=== PATIENT | male | born 1960 | race Caucasian/White ===

== ENCOUNTER 2017-02-04 19:47 | Observation (INO) | payer MEDICARE ==
[2017-02-04] MEDS ORDERED: HOME MEDICATION LIST NEEDED 1 EA EACH MISC ONE (20:40)
--- NOTE | 2017-02-04 21:28 | ER NURSING DOCUMENTATION ---
Nurse's Notes [facility] Name:Mainor Murray Age:56 yrs Sex:Male :1960 Arrival Date:02/04/2017 Time:19:47 BedTrauma-C Private MD:Jessenia Alexander Diagnosis:CHF (Congestive Heart Failure);Pneumonia, Unspecified Presentation: 02/04 19:49 Acuity: HALLE 2 rh 20:13 Presenting complaint: Patient states: Decreased sats at home - 80%. Doesn't normally sj wear O2. Mechanical fall today to left side of head and increasingly disoriented. Scab to left lower ear lobe. AO x 3 now. Transition of care: Home. Notified ED Physician of patient's arrival and CC Srinivasa Bond notified. 20:13 Method Of Arrival: Private Vehicle Triage Assessment: 20:15 General: Appears uncomfortable, Behavior is cooperative, pleasant. Pain: Complains of sj pain in back, shoulders, legs - chronic Pain currently is 7 out of 10 on a pain scale. Neuro: Level of Consciousness is awake, alert, Oriented to person, place, time, event. Cardiovascular: Capillary refill < 3 seconds Heart tones S1 S2 Murmur present. Respiratory: Airway is patent Respiratory effort is even, unlabored, Respiratory pattern is regular, Reports shortness of breath Onset: The symptoms/episode began/occurred gradually, the patient has moderate shortness of breath. Historical: - Allergies: Amoxicillin; Nubain; Keflex; Sulfa (Sulfonamide Antibiotics); Fentanyl; - Home Meds: 1. Synthroid 50 mcg oral tab 1 tab once daily 2. pregabalin 75 mg oral cap 1 cap 2 times per day 3. prednisone 1 mg oral tab once daily 4. Lasix 80 mg oral tab 1 tab 2 times per day 5. Klor-Con 10 10 mEq oral TbER 2 tabs once daily 6. OXYGEN 1 LITER AT NIGHT 7. metoprolol tartrate 100 mg oral tab 1 tab 2 times per day 8. Prilosec 20 mg oral cpDR 1 cap once daily 9. venlafaxine 75 mg oral cp24 1 cap once daily with food - PMHx: PNEUMONIA; CHF; COPD; HYPERTENSION; PACEMAKER; RHEUMATOID ARTHRITIS; CHF; GERD; hypertrophic cardiomyopathy; HEART MURMUR; ANEMIA; HYPOXIA; OPIOD DEPENDENT; SLEEP APNEA; EDEMA; COPD (September 22, 2016); Sepsis (September 22, 2016); - PSHx: HIP SURGERY; SHOULDER SURGERY; pacer and defibrillator; Bilat hip replacement; Shoulder replacement; - Tetanus: < 10 years. - Ebola Screening: : Patient negative for fever greater than or equal to 101.5 degrees Fahrenheit, and additional compatible Ebola Virus Disease symptoms. - Immunization history: Pneumococcal vaccine is up to date, Flu Vaccine < 1 year. - Social history: Smoking status: Patient states former smoker of tobacco. Smoking status: Patient uses tobacco products, current every day smoker. Patient/guardian denies using alcohol, marijuana. Screenin:08 Infectious Disease Risk None. Abuse screen: Denies threats or abuse. Denies injuries sj from another. Nutritional screening: No deficits noted. Assessment: 21:08 Cardiovascular: Rhythm is sinus rhythm Chest pain is located in substernal area. sj Respiratory: Respiratory effort is even, unlabored, Breath sounds are clear bilaterally. Vital Signs: 19:57 BP 127 / 64; Pulse 67; Resp 20; Temp 98.3(O); Pulse Ox 81% on R/A; Weight 68.49 kg; sj Height 5 ft. 7 in. (170.18 cm); Pain 7/10; 20:19 BP 141 / 69; Pulse 65; Resp 19; Pulse Ox 94% on 2 lpm NC; sj 20:19 BP 119 / 63; Pulse 64; Resp 15; Pulse Ox 95% on 2 lpm NC; sj 19:57 Body Mass Index 23.65 (68.49 kg, 170.18 cm) ED Course: 19:49 Patient arrived in ED. em2 19:49 Jessenia Alexander is Private Physician. em2 19:49 Stephanie Stephens is Primary Nurse. rh 19:49 Triage completed. rh 19:50 Melo Bernabe MD is Attending Physician. 19:51 EKG done. (by ED staff). Reviewed by Melo Bernabe MD. rh 20:01 EKG attached rh 20:13 Sahara Haro is Primary Nurse. sj 20:15 Patient moved to radiology. [place] 20:18 CXR 2V [id number] In Process Unspecified. EDMS 20:19 Patient moved back from radiology. [place] 20:27 CXR 2V [id number] Sent. [place] 20:32 Cortney Braden MD is Admitting Physician. alyssa 21: Valuables Given to family. Patient has correct armband on for positive identification. sj Placed in gown. Bed in low position. Call light in reach. Side rails up X2. 21:09 First set of blood cultures drawn Second set of blood cultures drawn by me by Lab staff sj EKG done. Inserted peripheral IV: 20 gauge in right forearm and blood collected. Missed attempts: Bleeding controlled, band aid applied, catheter tip intact. Administered Medications: 20:35 Drug: Lasix 80 mg; Route: IVP; Site: right forearm; 20:59 Drug: Dilaudid 1 mg; Route: IVP; Site: right forearm; 21:26 Follow up: Response: Pain is unchanged, physician notified 21:07 Drug: Rocephin 1 grams; Route: IVPB; Site: right forearm; 21:26 Follow up: IV Status: Infusion continued upon admission Point of Care Testing: Urine Dip: 20:39 pH: 5.5; ; Specific [place]: 1.020; Ketones: Negative; Glucose: Negative; Protein: mv Negative; Leukocytes: Negative; Nitrite: Negative ; Blood: Negative; Bilirubin: Negative ; Urobilinogen: Normal Output: 20:30 Urine: 550ml (Voided); Total: 550ml. Outcome: 20:33 Decision to Admit by Provider. alyssa 21: Patient left the ED. Signatures: Dispatcher [employer] EDMelo Altamirano MD MD jm Abbott, Radha Mead Rachel rh vogel, margaux mv Janzen, Sarah sj
--- NOTE | 2017-02-04 21:28 | ER PHYSICIAN DOCUMENTATION ---
Physician Documentation [facility] Name:Mainor Murray Age:56 yrs Sex:Male :1960 Arrival Date:02/04/2017 Time:19:47 BedTrauma-C Private MD:Jessenia Alexander ED, John Disposition: 02/04/17 20:33 Admit ordered for Cortney Braden. Preliminary diagnosis are CHF (Congestive Heart Failure), Pneumonia, Unspecified. - Bed requested for Medical/Surgical. - Condition is Fair. - Problem is new. - Symptoms are unchanged. 23 HR OBS Yes HPI: 02/04 20:03 This 56 yrs old Male presents to ER with complaints of Breathing Difficulty. jm 20:03 The patient has shortness of breath at rest, with light activity. Onset: The jm symptom(s)/episode began/occurred 2 day(s) ago. Duration: The symptoms are continuous. The patient's shortness of breath is aggravated by nothing. Associated signs and symptoms: Pertinent positives: edema, weakness, SOB, Pertinent negatives: chest pain, non-productive cough, productive cough, fever. Severity of symptoms: in the emergency department the symptoms are unchanged. Risk Factors. The patient has experienced similar episodes in the past, and the symptoms today are exactly the same, to when the patient was apparently diagnosed with CHF exacerbation . The patient has been recently seen by a physician: the patient's primary care provider, with similar presenting complaints, told to come to the ER for eval of his dyspnea. . Historical: - Allergies: Amoxicillin; Nubain; Keflex; Sulfa (Sulfonamide Antibiotics); Fentanyl; - Home Meds: 1. Synthroid 50 mcg oral tab 1 tab once daily 2. pregabalin 75 mg oral cap 1 cap 2 times per day 3. prednisone 1 mg oral tab once daily 4. Lasix 80 mg oral tab 1 tab 2 times per day 5. Klor-Con 10 10 mEq oral TbER 2 tabs once daily 6. OXYGEN 1 LITER AT NIGHT 7. metoprolol tartrate 100 mg oral tab 1 tab 2 times per day 8. Prilosec 20 mg oral cpDR 1 cap once daily 9. venlafaxine 75 mg oral cp24 1 cap once daily with food - PMHx: PNEUMONIA; CHF; COPD; HYPERTENSION; PACEMAKER; RHEUMATOID ARTHRITIS; CHF; GERD; hypertrophic cardiomyopathy; HEART MURMUR; ANEMIA; HYPOXIA; OPIOD DEPENDENT; SLEEP APNEA; EDEMA; COPD (September 22, 2016); Sepsis (September 22, 2016); - PSHx: HIP SURGERY; SHOULDER SURGERY; pacer and defibrillator; Bilat hip replacement; Shoulder replacement; - Tetanus: < 10 years. - Ebola Screening: : Patient negative for fever greater than or equal to 101.5 degrees Fahrenheit, and additional compatible Ebola Virus Disease symptoms. - Immunization history: Pneumococcal vaccine is up to date, Flu Vaccine < 1 year. - Social history: Smoking status: Patient states former smoker of tobacco. Smoking status: Patient uses tobacco products, current every day smoker. Patient/guardian denies using alcohol, marijuana. ROS: 20:08 Constitutional: Positive for fatigue, Negative for chills, fever. jm 20:08 ENT: Negative for rhinorrhea, sinus congestion, sinus pain, sore throat. 20:08 Cardiovascular: Positive for edema, paroxysmal nocturnal dyspnea, Negative for chest pain, palpitations. 20:08 Respiratory: Positive for dyspnea on exertion, shortness of breath, Negative for cough. 20:08 Abdomen/GI: Negative for abdominal pain, nausea, vomiting. 20:08 : Negative for urinary symptoms, hematuria. 20:08 MS/extremity: Positive for swelling. 20:08 Skin: Negative for cellulitis. 20:08 Neuro: Positive for dizziness, weakness, Negative for loss of consciousness, numbness. 20:08 Psych: Negative for drug dependence, alcohol dependence. Exam: 20:09 Constitutional: The patient appears alert, awake, comfortable. 20:09 Eyes: Periorbital structures: appear normal, Extraocular movements: no acute changes. 20:09 ENT: Mouth: is normal, Voice: is normal. 20:09 Neck: Thyroid: appears normal, Trachea: is midline with no obvious abnormalities. 20:09 Cardiovascular: Rate: normal, Rhythm: regular, Edema: 3+ edema to level of left midcalf and right midcalf. 20:09 Respiratory: the patient does not display signs of respiratory distress, Respirations: normal, Breath sounds: rales, that are mild, are located in both bases. 20:09 Abdomen/GI: Bowel sounds: normal, Palpation: abdomen is soft and non-tender. 20:09 Musculoskeletal/extremity: Extremities: grossly normal except: noted in the right leg and left leg: swelling, There is no evidence of cellulitis , ROM: intact in all extremities. 20:09 Skin: Appearance: Color: pink, cellulitis, is not appreciated. 20:09 Neuro: Mentation: is normal, Memory: is normal. 20:09 Psych: Behavior/mood is pleasant, cooperative, Affect is calm. Vital Signs: 19:57 BP 127 / 64; Pulse 67; Resp 20; Temp 98.3(O); Pulse Ox 81% on R/A; Weight 68.49 kg; sj Height 5 ft. 7 in. (170.18 cm); Pain 7/10; 20:19 BP 141 / 69; Pulse 65; Resp 19; Pulse Ox 94% on 2 lpm NC; sj 20:19 BP 119 / 63; Pulse 64; Resp 15; Pulse Ox 95% on 2 lpm NC; sj 19:57 Body Mass Index 23.65 (68.49 kg, 170.18 cm) MDM: 19:50 Patient medically screened. 20:01 EKG attached 20:13 Differential diagnosis: CHF exacerbation, pneumonia. Data reviewed: vital signs, nurses notes, and as a result, I will. 20:27 Test interpretation: by ED physician or midlevel provider: plain radiologic studies, jm ECG. Counseling: I had a detailed discussion with the patient and/or guardian regarding: the historical points, exam findings, and any diagnostic results supporting the discharge/admit diagnosis, lab results, radiology results, the need for further work-up and treatment in the hospital. ECG:. Physician consultation: Cortney Braden MD was called at 20:30, was contacted at 20:30, regarding admission, and will see patient tomorrow. Admission orders: after a detailed discussion of the patient's condition and case, the admit orders are written by me. ED course: Pt here for dyspnea. Pt found to have a bilateral PNA on CXR. Pt also w elevated BNP, so he also has a CHF exacerbation. Pt will be admitted by Dr. Braden. Pt given 80mg of IV lasix, azithro, and rocephin. . 02/04 21:03 Order name: TROPONIN I; Complete Time: 23:32 EDMS 02/04 21:46 Order name: C-REACTIVE PROTEIN; Complete Time: 23:32 EDMS 02/04 22:48 Order name: UA W/ MICRO -CULTURE IF IND; Complete Time: 23:32 [facility] [place] 02/05 02:57 Order name: TROPONIN I [facility] [place] 02/05 06:12 Order name: CBC AUTO DIF, MDIF/RMOR IF IND [facility] [place] 02/05 06:52 Order name: BASIC METABOLIC PANEL [facility] [place] 02/05 07:15 Order name: BNP,NT-PRO [facility] [place] 02/05 08:52 Order name: TROPONIN I [facility] [place] 02/05 20:37 Order name: BLOOD CULTURE [facility] [place] 02/05 20:37 Order name: BLOOD CULTURE [facility] [place] 02/06 01:39 Order name: TROPONIN I [facility] [place] 02/06 06:37 Order name: COMPREHENSIVE METABOLIC PANEL [facility] [place] 02/06 06:37 Order name: BNP,NT-PRO [facility] [place] 02/06 06:38 Order name: CBC AUTO DIF, MDIF/RMOR IF IND [facility] [place] 02/04 20:18 Order name: CXR 2V [id number] [facility] [place] 02/05 07:43 Order name: CXR 2V [id number] [facility] [place] 02/04 19:51 Order name: 12-lead EKG; Complete Time: 20:02 02/04 19:51 Order name: Continuous Cardiac Monitoring; Complete Time: 20:02 02/04 19:51 Order name: Pulse Ox Continuous; Complete Time: 20:02 02/04 19:51 Order name: Iv Saline Lock; Complete Time: 20:02 02/04 19:51 Order name: Oxygen; Complete Time: 20:02 EC:27 Rhythm is regular with Right bundle branch block. QRS interval is normal. QT interval jm is normal. No Q waves. T waves are Normal. No ST changes noted. No change from previous ECG in August,. Dispensed Medications: 20:35 Drug: Lasix 80 mg; Route: IVP; Site: right forearm; 20:59 Drug: Dilaudid 1 mg; Route: IVP; Site: right forearm; 21:26 Follow up: Response: Pain is unchanged, physician notified sj 21:07 Drug: Rocephin 1 grams; Route: IVPB; Site: right forearm; sj 21:26 Follow up: IV Status: Infusion continued upon admission Point of Care Testing: Urine Dip: 20:39 pH: 5.5; ; Specific [place]: 1.020; Ketones: Negative; Glucose: Negative; Protein: mv Negative; Leukocytes: Negative; Nitrite: Negative ; Blood: Negative; Bilirubin: Negative ; Urobilinogen: Normal Signatures: Melo Bernabe MD MD jm Hofsess, Rachel rh Janzen, Sarah sj
[2017-02-04] MEDS: GUAIFENESIN ER 600 MG TABLET PO SCH (21:44)
[2017-02-04] MEDS ORDERED: AZITHROMYCIN 500 MG in NORMAL SALINE 250 ML IV SCH (22:00)
[2017-02-04] MEDS: HYDROmorphone HCL 1 MG/ML SYR IV PRN (22:35)
[2017-02-04 22:44] LABS: URINE MUCUS NONE SEEN (Up to 25%); URINE RBC NONE SEEN (0-5/hpf); URINE SQUAMOUS EPITHELIAL CELL NONE SEEN (<= 15/hpf); URINE WBC NONE SEEN (0-4/hpf)
[2017-02-04 22:46] LABS: URINE COLOR PALE YELLOW
[2017-02-04 22:47] LABS: URINE APPEARANCE CLEAR; URINE BACTERIA NONE SEEN (<10/hpf); URINE BILIRUBIN NEGATIVE (NEGATIVE); URINE BLOOD NEGATIVE (NEGATIVE); URINE GLUCOSE NORMAL (NEGATIVE); URINE KETONE NEGATIVE (NEGATIVE); URINE LEUKOCYTE ESTERASE NEGATIVE (NEGATIVE); URINE NITRITE NEGATIVE (NEGATIVE); URINE PH 6.5 (5-7); URINE PROTEIN NEGATIVE (NEG - TRACE); URINE SPECIFIC GRAVITY 1.015 (0.001-1.035); URINE UROBILINOGEN 0.2mg/dL (Normal) (NEG-1mg/dL)
[2017-02-05] MEDS: HYDROmorphone HCL 1 MG/ML SYR IV PRN ×2 (05:49→11:15)
[2017-02-05 06:09] LABS: BASOPHIL# 0.1 X 10^3uL (0.0-0.1); BASOPHILS 0.8 % (0.0-2.0); EOSINOPHILS 1.1 % (0.0-6.0); EOSINOPHILS# 0.1 X 10^3uL (0.0-0.4); HEMATOCRIT 34.8 % (42.0-54.0); HEMOGLOBIN 11.6 g/dL (14.0-18.0); LYMPHOCYTES# 2.2 X 10^3uL (0.8-3.8); MEAN CELL VOLUME 73.9 fL (80.0-100.0); MEAN CORPUS. HGB CONCENTRATION 33.3 g/dL (32.0-36.0); MEAN CORPUSCULAR HEMOGLOBIN 24.6 pg (29.0-35.0); MEAN PLATELET VOLUME 8.4 fL (7.4-10.4); MONOCYTES 7.8 % (2.0-10.0); MONOCYTES# 0.8 X 10^3uL (0.2-1.0); NEUTROPHILS 69.3 % (54.0-75.0); NEUTROPHILS# 7.4 X 10^3uL (2.6-6.7); PLATELET COUNT 296 X 10^3uL (130-440); RED BLOOD COUNT 4.72 X 10^6uL (4.20-6.10); WHITE BLOOD COUNT 10.6 X 10^3uL (3.9-10.7)
[2017-02-05 06:11] LABS: RED CELL DISTRIBUTION WIDTH 18.6 % (11.5-14.5)
[2017-02-05 06:38] LABS: BLOOD UREA NITROGEN 12 mg/dL (9-20); CALCIUM 9.1 mg/dL (8.4-10.2); CHLORIDE 101 mmol/L (98-107); CREATININE 1.2 mg/dL (0.7-1.3); EST GLOMERULAR FILTRATION RATE > 60 mL/min; GLUCOSE 110 mg/dL (70-100); POTASSIUM 2.7 mmol/L (3.5-5.1); SODIUM 142 mmol/L (137-145)
--- NOTE | 2017-02-05 07:01 | RADIOLOGY REPORT ---
Two views of the chest are compared with prior films dated 10/02/2016 The heart and vessels and lungs are stable. Left sided pacemaker appears unchanged. There has been development of bilateral lower lung field infiltrates. No fluid or pneumothorax is seen. IMPRESSION: Development of bilateral lower lung field infiltrates. MTDD
[2017-02-05] MEDS: GUAIFENESIN ER 600 MG TABLET PO SCH ×2 (08:40→20:34)
[2017-02-05] MEDS ORDERED: POTASSIUM CHLORIDE ER 20 MEQ TABLET PO SCH (10:00)
--- NOTE | 2017-02-05 13:41 | HISTORY & PHYSICAL ---
PRIMARY CARE PROVIDER: Peyton Nelson. CARDIOLOGY: Dr. Reece Lopez. GENERAL SURGEON: Dr. Lamont Isaacs. CHIEF COMPLAINT: Shortness of breath. HISTORY OF PRESENT ILLNESS: This is a 56-year-old white male with a history of obstructive hypertrophic cardiomyopathy, hypertension, rheumatoid arthritis and chronic pain syndrome, who presented to [facility] with a 2-day history of increasing shortness of breath and edema. He has had a mild nonproductive cough. However, he has not had any fevers, chills, or sweats. He has had some midsternal chest pain without radiation described as chest tightness. No lightheadedness or dizziness. No palpitations. No nausea, vomiting or diaphoresis. He has not had any known sick contacts, no sore throat, no ear pain. He has had a mild runny nose. He was seen in the wound care clinic yesterday and was sent to the Emergency Room from the [facility] for workup of his fluid overload. In the emergency room he was found to have bilateral lower lobe infiltrates and was admitted. REVIEW OF SYSTEMS: He had a fall yesterday tripping and landing on the right side of his head. No loss of consciousness. He landed on outstretched hands. He has some soreness but no significant pain or injuries. He uses nocturnal oxygen 2 liters at night. His swelling and shortness of breath is better from admission. No headaches. No history of stroke and no signs or symptoms of stroke specifically no dysphagia, no dysphasia, no upper or lower extremity weakness above his baseline. No dysuria. No abdominal pain. He has wounds of his bilateral feet which are being followed by wound care, Dr. Isaacs and Tessy Sales RN. No recent travel. No rash. No history of DVT. Weight loss 20 pounds over the last several months. PAST MEDICAL HISTORY 1. Obstructive hypertrophic cardiomyopathy. 2. Chronic diastolic congestive heart failure. 3. Renal vascular hypertension. He is status post remote stenting of both renal arteries. 4. Status post AICD and pacemaker implantation. EKG with right bundle branch block morphology. 5. History of respiratory failure secondary to interstitial lung disease. 6. Hypothyroidism. 7. Gastroesophageal reflux disease. 8. Nocturnal hypoxemia. He wears 2 liters at night. 9. Rheumatoid arthritis, seronegative, multiple sites. 10. Chronic pain syndrome. 11. Idiopathic peripheral neuropathy. 12. History of adrenal insufficiency due to corticosteroid withdrawal. 13. Sciatica, left side. 14. Depression. 15. Bilateral lower extremity wounds. PAST SURGICAL HISTORY 1. Status post remote stenting of both renal arteries. 2. Renal angiogram performed October 2015 demonstrated widely patent renal arteries. 3. Status post AICD and pacemaker implantation. 4. Status post bilateral total hip replacements. 5. Status post bilateral shoulder replacements. MEDICATIONS: Obtained from chart notes Baby aspirin 81 mg daily. Diltiazem 120 mg daily. Oxygen 2 liters by nasal cannula at night. Lasix 1 tablet twice daily. Krill oil daily. Lyrica 75 mg twice daily. Metoprolol 100 mg twice daily. Oxycodone 40 mg twice daily. Oxycodone 60 mg twice daily. Oxycodone 30 mg 4 times daily. Potassium chloride 10 mEq 2 tablets daily. Spironolactone 25 mg daily. Synthroid 50 mcg daily. Valtrex 1 g 2 times daily for 7 days as needed for outbreak. Effexor 75 mg daily. Prednisone 1 mg daily. SOCIAL HISTORY: He is . He lives at home with his and 2 sons. He is on Social Security income and Disability secondary to multiple medical problems. He continues to smoke 5-6 cigarettes per day. No alcohol or drug use. FAMILY HISTORY: His mom of 78 has rheumatoid arthritis. Dad is 81, has a history of metastatic renal cell carcinoma. He is currently stable. Two brothers that are healthy. ALLERGIES: Nubain, Keflex, sulfa and penicillin causing anaphylaxis. DATA: Chest x-ray: Bilateral lower lobe infiltrates. Admission laboratories: C reactive protein is greater than 90. Urinalysis negative. Troponin times 2 negative. CBC this morning: White count 10.6, hemoglobin 11.6, hematocrit 34.8 , platelets 296 with 89% neutrophils, 3% bands. D-dimer 258. Potassium this morning 2.7. Alkaline phosphatase 157. BNP this morning 7020. EKG: Normal sinus rhythm with right bundle branch block, QRS interval normal, QT interval normal. No Q waves. No acute ST-T wave changes. No change from prior EKG in August 2016. EMERGENCY DEPARTMENT COURSE: Lasix 80 mg IV times 1, Dilaudid 1 mg IV, Rocephin 1 g IV. PHYSICAL EXAMINATION VITAL SIGNS: Initial vital signs in the emergency room: Temperature 98.3, pulse 67, respiratory rate 20, blood pressure 127/64, pulse oximetry 81% on room air, weight 68.49 kg. GENERAL: This is a chronically ill appearing male who is lying in bed in no apparent distress. He is awake, alert and oriented times 3. HEENT: His sclerae are clear. Pupils are equal, round and reactive to light. Extraocular movements are intact. His TMs are clear. His oropharynx is clear. Mucous membranes are moist and intact. Small abrasion left pinna secondary to fall yesterday. NECK: His neck is supple. No carotid bruits. No jugular venous distention. No lymphadenopathy. LUNGS: Fairly good aeration throughout and clear. HEART: Regular rate and rhythm with a grade 2/6 systolic murmur at the left lower sternal border. ABDOMEN: Soft, nontender, nondistended with good bowel sounds. No masses or hepatosplenomegaly. BACK: Significant scoliosis. EXTREMITIES: Bilateral lower extremities have dressings in place which were not removed. He appears to have at least trace to 1+ edema. Unable to palpate dorsalis pedis and posterior tibial pulses. Negative Homans. NEUROLOGIC: He is alert and oriented x3. Cranial nerves 2-12 are grossly intact without focal deficits. His motor, sensation and DTRs are intact. SKIN: He has well healed surgical scars of his bilateral shoulders and bilateral hips. IMPRESSION: This is a 56-year-old white male with multiple medical problems who presents with bilateral pneumonia, hypoxemia, congestive heart failure exacerbation. PLAN 1. Fluids, electrolytes and nutrition. He was given Lasix in the emergency room. Will replete potassium and follow electrolytes closely. His BNP has decreased from admission. Regular diet. 2. Cardiovascular. Cardiology consultation this morning. Repeat EKG this morning. He has 2 sets of troponins which have been negative. Continue his current medications. Await recommendations from Cardiology. 3. Respiratory. The patient with nocturnal hypoxemia requiring oxygen here in the hospital. His lungs sound fairly stable. He has bilateral lower lobe infiltrates. Will continue Rocephin and azithromycin. He is not having any bronchospasm. No need for steroids or nebulizers at this time. Respiratory therapy consultation. 4. GI. The patient with history of gastroesophageal reflux disease. Continue PPI. Has mildly elevated alkaline phosphatase. Otherwise stable. 5. Renal. The patient with history of renal vascular hypertension. He is status post remote stenting. His renal function is currently stable. 6. Disposition. He is admitted to observation. Anticipate 2-3 day hospital stay if he continues to do well. Copy to Peyton Nelson. [facility]
[2017-02-05] MEDS ORDERED: IBUPROFEN 200 MG TABLET PO PRN (13:47)
[2017-02-05] MEDS ORDERED: NON-FORMULARY MEDICATION (Omeprazole [Prilosec] 20 MG) PO SCH (14:00)
[2017-02-05] MEDS ORDERED: predniSONE 1 MG TABLET PO SCH (14:00)
[2017-02-05] MEDS ORDERED: oxyCODONE HCL CR 10 MG TAB.SR.12H PO SCH (14:00)
--- NOTE | 2017-02-05 14:02 | HISTORY & PHYSICAL ---
DATE OF CONSULTATION: 02/05/17 IDENTIFYING DATA: A 56-year-old male. REASON FOR CONSULTATION: Heart failure. HISTORY OF PRESENT ILLNESS: A very pleasant gentleman with a known history of hypertrophy obstructive cardiomyopathy. The patient is also noted to have a prior history of noncompliance and had been somewhat difficult to control with beta blockers and calcium channel blockers. As of late it appears that he had been complaint to his medical therapy. In addition, he underwent a pacemaker/ defibrillator secondary to high risk features with a DL of greater than 30 mm. He has received no therapies. As of late the patient has been struggling with lower extremity edema and wounds. He has been followed closely by infectious disease. The patient was admitted last night with progressive dyspnea. He himself denies any fevers or chills but he is being treated with immunosuppressants for rheumatoid arthritis. Chest x-ray revealed bilateral infiltrates and proBNP was quite high. He did receive a dose of Lasix and is feeling a little bit better. Again , he denies any fevers, chills and/or productive cough. PAST MEDICAL HISTORY, ILLNESSES AND SURGERIES 1. History of respiratory failure with interstitial pneumonitis. 2. Acute on chronic diastolic heart failure secondary to hypertrophic cardiomyopathy. 3. Prior history of leukocytosis due to steroids. 4. History of COPD. 5. History of rheumatoid arthritis. 6. History of tobacco use. MEDICATIONS: Please refer to the medication reconciliation list. ALLERGIES: Please refer to the medication reconciliation list. SOCIAL HISTORY: Again he has a prior history of tobacco use. FAMILY HISTORY: Negative for premature cardiovascular disease. REVIEW OF SYSTEMS: The remaining comprehensive review of systems is negative. PHYSICAL EXAMINATION GENERAL: Well-nourished, well-developed, no acute distress. VITAL SIGNS: Blood pressure 123/67 with a pulse of 69 and regular, respirations 16 and he is satting 96% on 2 liters, afebrile. HEENT: Normocephalic/atraumatic. Ears, eyes, nose and throat are unremarkable. No masses or lesions. NECK: I am unable to appreciate any significant JVD sitting upright. Carotid upstrokes are brisk without bruits. CARDIOVASCULAR: PMI is slightly displaced. He is noted to have a 3/6 systolic and holosystolic murmur consistent with hypertrophic cardiomyopathy that was previously diagnosed. RESPIRATORY: Slight wheezing with slight crackles noted at bases. ABDOMEN: Bowel sounds present, nontender, nondistended, no hepatosplenomegaly. EXTREMITIES: Dressed. Edema noted with wounds. NEUROLOGIC: No gross motor or sensory deficits. PSYCHIATRIC: Alert and oriented times 3. EKG: Demonstrates sinus rhythm with a right bundle branch block and left anterior fascicular block. High voltage noted. LABORATORY DATA: White blood cell count 10.6, hemoglobin 11.6, platelet count 296. Sodium 142, potassium 2.7, BUN and creatinine are 12 and 1.2 respectively. Initial proBNP was very high and has come down to 7020 after a dose of IV Lasix. Troponins are negative. CRP is greater than 90. Blood cultures pending. Chest x-ray reveals bilateral lower lobe infiltrates. ASSESSMENT 1. Renal vascular hypertension. Remote stent in both renal arteries. Last renal angiogram performed in October 2015 demonstrated widely patent renal arteries. 2. Hypertrophic obstructive cardiomyopathy associated with outflow tract obstruction and mitral regurgitation . Variable outflow tract obstruction related to noncompliance to medications. 3. Status post AICD and pacemaker implantation secondary to high risk features above. 4. Rheumatoid arthritis, chronic immunosuppressive use. 5. Ongoing tobacco use. 6. EKG demonstrating chronic right bundle branch and left anterior fascicular block with high voltage. 7. Prior history of respiratory failure secondary to interstitial lung disease. 8. Chronic lower extremity edema with wounds. 9. Admission with respiratory failure, acute on chronic. PLAN: I suspect that the respiratory is multifactorial. The patient clearly has a fair amount of lung pathology on top of acute on chronic diastolic heart failure. It did respond nicely to IV Lasix. I would recommend aggressive diuresis and run him on the dry side with his other comorbidities including lower extremity edema and interstitial lung disease. Will go ahead and obtain an echocardiogram to assess overall central venous pressures and filling pressures along with LV outflow tract obstruction and DL. In addition, we will review his medications and hopefully he has been compliant to beta blockers and calcium channel blockers. It has been a pleasure to participate in the care of this patient. Please do not hesitate to call for further questions. Copy to Cortney Braden MD [facility]
[2017-02-05] MEDS: ZINC GLUCONATE 50 MG TABLET PO SCH (14:50)
[2017-02-05] MEDS: OXYCODONE HCL 40 MG PO SCH ×2 (14:50→20:34)
[2017-02-05] MEDS: predniSONE 10 MG TABLET PO SCH (14:50)
[2017-02-05] MEDS: AZITHROMYCIN 250 MG TABLET PO SCH (14:51)
[2017-02-05] MEDS: LEVOTHYROXINE 50 MCG TABLET PO SCH (14:51)
[2017-02-05] MEDS: PREGABALIN 75 MG CAPSULE PO SCH ×2 (14:52→20:33)
[2017-02-05] MEDS: VENLAFAXINE ER 75 MG CAPSULE PO SCH (14:52)
[2017-02-05] MEDS: MAGNESIUM OXIDE 400 MG TABLET PO SCH (14:52)
[2017-02-05] MEDS: cefTRIAXone SODIUM 1,000 MG in NORMAL SALINE MINI-BAG+ 100 ML IV SCH (20:31)
[2017-02-05] MEDS: FUROSEMIDE 40 MG TABLET PO SCH (20:34)
[2017-02-05] MEDS: OXYCODONE HCL 20 MG PO SCH (20:37)
[2017-02-05] MEDS ORDERED: FUROSEMIDE 20 MG TABLET PO SCH (21:00)
[2017-02-05] MEDS: oxyCODONE HCL IR 20 MG TABLET PO PRN (21:50)
[2017-02-06] MEDS: PANTOPRAZOLE 40 MG TABLET PO SCH (06:15)
[2017-02-06] MEDS: IBUPROFEN 600 MG TABLET PO PRN (06:15)
[2017-02-06 06:18] LABS: BASOPHIL# 0.2 X 10^3uL (0.0-0.1); BASOPHILS 1.1 % (0.0-2.0); EOSINOPHILS 0.1 % (0.0-6.0); HEMATOCRIT 36.9 % (42.0-54.0); LYMPHOCYTES 11.5 % (20.0-40.0); LYMPHOCYTES# 2.2 X 10^3uL (0.8-3.8); MEAN CELL VOLUME 74.7 fL (80.0-100.0); MEAN CORPUS. HGB CONCENTRATION 33.3 g/dL (32.0-36.0); MEAN CORPUSCULAR HEMOGLOBIN 24.9 pg (29.0-35.0); MEAN PLATELET VOLUME 8.3 fL (7.4-10.4); MONOCYTES 7.1 % (2.0-10.0); MONOCYTES# 1.3 X 10^3uL (0.2-1.0); NEUTROPHILS 80.2 % (54.0-75.0); PLATELET COUNT 307 X 10^3uL (130-440); RED CELL DISTRIBUTION WIDTH 18.4 % (11.5-14.5)
[2017-02-06 06:26] LABS: A/G RATIO 1.1; ALBUMIN 3.9 g/dL (3.5-5.0); ALKALINE PHOSPHATASE 277 U/L (38-126); ALT 43 U/L (21-72); AST 48 U/L (17-59); BILIRUBIN, TOTAL 0.5 mg/dL (0.2-1.3); BLOOD UREA NITROGEN 12 mg/dL (9-20); CALCIUM 9.1 mg/dL (8.4-10.2); CHLORIDE 103 mmol/L (98-107); EST GLOMERULAR FILTRATION RATE > 60 mL/min; GLUCOSE 105 mg/dL (70-100); POTASSIUM 3.6 mmol/L (3.5-5.1); SODIUM 142 mmol/L (137-145); TOTAL PROTEIN 7.3 g/dL (6.3-8.2)
[2017-02-06 06:36] LABS: WHITE BLOOD COUNT 18.7 X 10^3uL (3.9-10.7)
[2017-02-06 06:37] LABS: HEMOGLOBIN 12.3 g/dL (14.0-18.0); RED BLOOD COUNT 4.94 X 10^6uL (4.20-6.10)
[2017-02-06] MEDS: ZINC GLUCONATE 50 MG TABLET PO SCH (08:13)
[2017-02-06] MEDS: OXYCODONE HCL 20 MG PO SCH ×2 (08:14→21:35)
[2017-02-06] MEDS: OXYCODONE HCL 40 MG PO SCH ×2 (08:14→21:35)
[2017-02-06] MEDS: PREGABALIN 75 MG CAPSULE PO SCH ×2 (08:15→21:36)
[2017-02-06] MEDS: VENLAFAXINE ER 75 MG CAPSULE PO SCH (08:15)
[2017-02-06] MEDS: MULTIVITAMINS THERAPEUTIC 1 TABLET PO SCH (08:15)
[2017-02-06] MEDS: POTASSIUM CHLORIDE ER 10 MEQ TABLET PO SCH (08:15)
[2017-02-06] MEDS: LEVOTHYROXINE 50 MCG TABLET PO SCH (08:15)
[2017-02-06] MEDS: GUAIFENESIN ER 600 MG TABLET PO SCH ×2 (08:15→21:36)
[2017-02-06] MEDS: predniSONE 10 MG TABLET PO SCH (08:16)
[2017-02-06] MEDS: AZITHROMYCIN 250 MG TABLET PO SCH (08:16)
[2017-02-06] MEDS: MAGNESIUM OXIDE 400 MG TABLET PO SCH (08:16)
[2017-02-06] MEDS: FUROSEMIDE 40 MG TABLET PO SCH ×2 (08:33→21:36)
[2017-02-06] MEDS ORDERED: POTASSIUM CHLORIDE ER 10 MEQ TABLET PO SCH (09:00)
[2017-02-06] MEDS ORDERED: O2 HUMIDIFIER 650 ML BOTTLE INHALATION ONE (10:08)
--- NOTE | 2017-02-06 16:02 | PROGRESS NOTE: IM SOAP ---
IM: PN Subjective General: fatigue, confusion (Nursing staff report confusion overnight. He remembers coming in and out of sleep. He dropped glasses of water and ice. ), pain (Chronic pain), fever (Temp recorded as 39=8.1 this morning. He was unaware of fever.), no good appetite, no chills, no other (No sweats) Respiratory: cough (Minimal), SOB, no sputum, no wheeze Gastrointestinal: no abdominal pain, no nausea, no vomiting, no diarrhea Musculoskeletal: pain (Chroninc pain) Integumentary: wound (Wound BLE) Neurological: limb weakness ([place]ron[place], diffuse.) IM: PN Objective Exam - I&O/Vital Signs I&O: Intake & Output 02/06/17 02/06/17 02/06/17 05:59 13:59 21:59 Intake Total 600 Output Total 700 Balance -100 Intake: Oral 600 Output: Urine 700 Other: Urine Appearance Clear Clear Urine Color Pale Pale Voiding Method Urinal Urinal # Voids 2 # Bowel Movements 0 Vital Signs: Last Vital Signs Temp 35.9 C L 02/06/17 15:00 Pulse 65 02/06/17 15:00 Resp 12 02/06/17 15:00 BP 126/75 02/06/17 15:00 Pulse Ox 92 02/06/17 15:00 Oxygen Flow Rate 3 Oxygen Delivery Method Nasal Cannula - Constitutional General appearance: Present: cooperative, other (Appears much older than stated age. Chronically-ill appearing. ). Absent: acute distress - Head Head exam: Present: atraumatic, normal inspection - Eye Eye exam: Present: EOMI, PERRL - ENT ENT exam: Present: mucous membranes moist - Neck Neck exam: Absent: lymphadenopathy - Respiratory Respiratory exam: Present: clear. Absent: accessory muscle use, rales, wheezes - Cardiovascular Cardiovascular exam: Present: RRR. Absent: gallop, rubs, systolic murmur - GI/Abdominal GI/Abdominal exam: Present: normal bowel sounds, soft. Absent: distended, mass , organomegaly, rebound, tenderness - Extremities Exam Extremities exam: Present: edema (Trace-1+ BLE. Dressings in place are not removed. ), tenderness (BUE and BLE: chronic.) - Back Exam Back exam: Present: other (Scoliosis.). Absent: CVA tenderness (L), CVA tenderness (R) - Neurological Exam Neurological exam: Present: alert, CN II-XII intact, oriented X3 - Psychiatric Psychiatric exam: Present: normal affect, normal mood - Allied Health Notes Allied health notes reviewed: case management, nursing - Lab Labs: Laboratory Last Values WBC 18.7 X 10^3uL (3.9-10.7) H 02/06/17 05:45 RBC 4.94 X 10^6uL (4.20-6.10) 02/06/17 05:45 Hgb 12.3 g/dL (14.0-18.0) L 02/06/17 05:45 Hct 36.9 % (42.0-54.0) L 02/06/17 05:45 MCV 74.7 fL (80.0-100.0) L 02/06/17 05:45 MCH 24.9 pg (29.0-35.0) L 02/06/17 05:45 MCHC 33.3 g/dL (32.0-36.0) 02/06/17 05:45 RDW 18.4 % (11.5-14.5) H 02/06/17 05:45 Plt Count 307 X 10^3uL (130-440) 02/06/17 05:45 MPV 8.3 fL (7.4-10.4) 02/06/17 05:45 Neutrophils % 80.2 % (54.0-75.0) H 02/06/17 05:45 Lymphocytes % 11.5 % (20.0-40.0) L 02/06/17 05:45 Eosinophils % 0.1 % (0.0-6.0) 02/06/17 05:45 Basophils % 1.1 % (0.0-2.0) 02/06/17 05:45 Neutrophils # 15.0 X 10^3uL (2.6-6.7) H 02/06/17 05:45 Lymphocytes # 2.2 X 10^3uL (0.8-3.8) 02/06/17 05:45 Monocytes 7.1 % (2.0-10.0) 02/06/17 05:45 Monocytes # 1.3 X 10^3uL (0.2-1.0) H 02/06/17 05:45 Eosinophils # 0.0 X 10^3uL (0.0-0.4) 02/06/17 05:45 Basophils # 0.2 X 10^3uL (0.0-0.1) H 02/06/17 05:45 Sodium 142 mmol/L (137-145) 02/06/17 05:45 Potassium 3.6 mmol/L (3.5-5.1) D 02/06/17 05:45 Chloride 103 mmol/L (98-107) 02/06/17 05:45 Carbon Dioxide 26 mmol/L (22-30) 02/06/17 05:45 BUN 12 mg/dL (9-20) 02/06/17 05:45 Creatinine 1.0 mg/dL (0.7-1.3) 02/06/17 05:45 GFR Calculation > 60 mL/min 02/06/17 05:45 Glucose 105 mg/dL (70-100) H 02/06/17 05:45 Calcium 9.1 mg/dL (8.4-10.2) 02/06/17 05:45 Total Bilirubin 0.5 mg/dL (0.2-1.3) 02/06/17 05:45 AST 48 U/L (17-59) 02/06/17 05:45 ALT 43 U/L (21-72) 02/06/17 05:45 Alkaline Phosphatase 277 U/L (38-126) H 02/06/17 05:45 Troponin I 0.019 ng/mL (0.00-0.034) 02/05/17 08:22 C-Reactive Protein > 90.0 mg/L (<10.0) H 02/04/17 20:30 NT-Pro-B Natriuret Pep 2720 pg/mL (<125) H 02/06/17 05:45 Total Protein 7.3 g/dL (6.3-8.2) 02/06/17 05:45 Albumin 3.9 g/dL (3.5-5.0) 02/06/17 05:45 Albumin/Globulin Ratio 1.1 02/06/17 05:45 Urine Color Pale yellow 02/04/17 22:36 Urine Appearance Clear 02/04/17 22:36 Urine pH 6.5 (5-7) 02/04/17 22:36 Ur Specific [place] 1.015 (0.001-1.035) 02/04/17 22:36 Urine Protein Negative (NEG - TRACE) 02/04/17 22:36 Urine Ketones Negative (NEGATIVE) 02/04/17 22:36 Urine Blood Negative (NEGATIVE) 02/04/17 22:36 Urine Nitrate Negative (NEGATIVE) 02/04/17 22:36 Urine Bilirubin Negative (NEGATIVE) 02/04/17 22:36 Urine Urobilinogen 0.2mg/dl (normal) (NEG-1mg/dL) 02/04/17 22:36 Ur Leukocyte Esterase Negative (NEGATIVE) 02/04/17 22:36 Urine RBC None seen (0-5/hpf) 02/04/17 22:36 Urine WBC None seen (0-4/hpf) 02/04/17:36 Ur Squamous Epith Cells None seen (<= 15/hpf) 02/04/17:36 Urine Bacteria None seen (<10/hpf) 02/04/17: Urine Mucus None seen (Up to 25%) 02/04/17: Urine Glucose Normal (NEGATIVE) 02/04/17:36 Assessment and Plan - Date of Encounter Date of Encounter: 02/06/17 (1) Pneumonia Status: Acute Assessment and plan: Admission CXR shows BLL infiltrates. Minimal cough. Admission WBC normal and elevated to 18K today. CRP>90. CXR looks much better than CXR at [facility] 08/01 on [facility]. Patient with desaturation and altered mental status overnight. His oxygen saturation is now stable on 2-3 L. He is not ready for discharge today. We will keep him until at least tomorrow. Continue Rocephin and azithromycin, IS, and oxygen. Appreciate respiratory therapy consult. He has not had any bronchospasm. Therefore, we will not add bronchodilators or steroids. He has a history of noncompliance at home. It is unclear whether or not he was taking his medications. He is back on his chronic prednisone 10 mg daily. It is possible that his elevated WBC is related to use of prednisone in the hospital. Recheck CRP tomorrow. His symptoms do not match the severity of his elevated CRP. He does have underlying rheumatoid arthritis. Current Visit: No (2) Altered mental status Status: Acute Assessment and plan: He was aware that he was confused last night. He attempted to take off his oxygen multiple times and had episodes of desaturation. He received all of his chronic narcotics later than his usual schedule yesterday. Therefore, I suspect his sedation and confusion was related to the narcotics. He now has clear mentation with a normal neurologic exam. Current Visit: Yes (3) Hypoxia Status: Chronic Assessment and plan: He has a history of nocturnal hypoxemia and uses 2 L at night. He was requiring 7 liters of oxygen by nasal cannula this morning. We were able to quickly decreases oxygen to 2-3 L per nasal cannula today. Current Visit: No (4) Leukocytosis Status: Acute Assessment and plan: His white blood cell Was normal on admission. As above, his white blood cell count increased to 18.7today. His blood cultures are no growth to date. It is possible that he was not taking his medications at home and the prednisone dosage from yesterday caused the elevation of the WBC. Current Visit: No (5) Hypokalemia Status: Acute Assessment and plan: Potassium low at 2.7 upon admission. This is been repleted with oral KCL. We' ll give an additional KCl dosages today and will repeat BMP tomorrow. Current Visit: No (6) Obstructive hypertrophic cardiomyopathy Status: Chronic Assessment and plan: Appreciate cardiology evaluation yesterday. Echocardiogram shows ejection fraction greater than 70% and grade 1 diastolic dysfunction. Overall, his hypertrophic cardiomyopathy is stable. Current Visit: No (7) Chronic pain Status: Chronic Assessment and plan: Continue chronic narcotics here in the hospital. Current Visit: No (8) Tobacco abuse Status: Chronic Assessment and plan: I have counseled him on tobacco cessation. Current Visit: No (9) Non-pressure chronic ulcer of other part of left foot with fat layer exposed Status: Chronic Assessment and plan: Continue wound care. Current Visit: No (10) Non-pressure chronic ulcer of other part of right foot with fat layer exposed Status: Chronic Assessment and plan: Continue wound care. Current Visit: No - Time Spent With Patient Total time spent with greater than 50% in coordination of care (as documented) at patient's floor/unit and/or counseling patient: 25 - 35 minutes Quality Questions - VTE Prophylaxis Assessment VTE Present on Admission?: No Patient at risk for venous thromboembolism?: Yes VTE Risk Level: High Risk Pharmaceutical VTE prophylaxis contraindication reason: N/A- VTE prophylaxsis ordered Mechanical VTE prophylaxis contraindication reason: N/A- VTE prophylaxsis ordered (1) Pneumonia Qualifiers: Pneumonia type: due to unspecified organism Laterality: bilateral Lung location: lower lobe of lung Qualified Code(s): J18.9 - Pneumonia, unspecified organism (2) Altered mental status Qualifiers: Altered mental status type: disorientation Qualified Code(s): R41.0 - Disorientation, unspecified (4) Leukocytosis Qualifiers: Leukocytosis type: leukemoid reaction Qualified Code(s): D72.823 - Leukemoid reaction (7) Chronic pain Qualifiers: Chronic pain type: chronic pain syndrome Qualified Code(s): G89.4 - Chronic pain syndrome
[2017-02-06] MEDS: oxyCODONE HCL IR 20 MG TABLET PO PRN (16:28)
[2017-02-06] MEDS: cefTRIAXone SODIUM 1,000 MG in NORMAL SALINE MINI-BAG+ 100 ML IV SCH (21:36)
[2017-02-06] MEDS: ENOXAPARIN SODIUM 40 MG/0.4 ML SYR SUBCUT SCH (21:36)
[2017-02-07] MEDS: oxyCODONE HCL IR 20 MG TABLET PO PRN (03:41)
[2017-02-07] MEDS: IBUPROFEN 600 MG TABLET PO PRN (03:41)
[2017-02-07] MEDS: PANTOPRAZOLE 40 MG TABLET PO SCH (05:48)
[2017-02-07 06:36] LABS: BLOOD UREA NITROGEN 16 mg/dL (9-20); CALCIUM 9.1 mg/dL (8.4-10.2); CHLORIDE 101 mmol/L (98-107); CREATININE 1.2 mg/dL (0.7-1.3); EST GLOMERULAR FILTRATION RATE > 60 mL/min; GLUCOSE 87 mg/dL (70-100); POTASSIUM 3.9 mmol/L (3.5-5.1); SODIUM 141 mmol/L (137-145)
[2017-02-07 06:44] VITALS: RESP 16; O2SAT 93
[2017-02-07 07:02] LABS: C-REACTIVE PROTEIN > 90.0 mg/L (<10.0)
[2017-02-07 07:07] LABS: EOSINOPHIL % (Manual) 3 % (0.0-6.0); HEMOGLOBIN 11.2 g/dL (14.0-18.0); LYMPHOCYTE % (Manual) 31 % (20.0-40.0); MEAN CORPUSCULAR HEMOGLOBIN 25.3 pg (29.0-35.0); MONOCYTE % (Manual) 3 % (2.0-10.0); NEUTROPHIL % (Manual) 63 % (54.0-75.0); PLATELET COUNT 256 X 10^3uL (130-440); RED BLOOD COUNT 4.41 X 10^6uL (4.20-6.10)
[2017-02-07 07:08] LABS: PLATELET ESTIMATE ADEQUATE
[2017-02-07] MEDS: ENOXAPARIN SODIUM 40 MG/0.4 ML SYR SUBCUT SCH (08:00)
[2017-02-07] MEDS: OXYCODONE HCL 40 MG PO SCH (08:00)
[2017-02-07] MEDS: GUAIFENESIN ER 600 MG TABLET PO SCH (08:01)
[2017-02-07] MEDS: POTASSIUM CHLORIDE ER 10 MEQ TABLET PO SCH (08:01)
[2017-02-07] MEDS: MAGNESIUM OXIDE 400 MG TABLET PO SCH (08:01)
[2017-02-07] MEDS: AZITHROMYCIN 250 MG TABLET PO SCH (08:01)
[2017-02-07] MEDS: OXYCODONE HCL 20 MG PO SCH (08:01)
[2017-02-07] MEDS: PREGABALIN 75 MG CAPSULE PO SCH (08:02)
[2017-02-07] MEDS: ZINC GLUCONATE 50 MG TABLET PO SCH (08:02)
[2017-02-07] MEDS: predniSONE 10 MG TABLET PO SCH (08:02)
[2017-02-07] MEDS: LEVOTHYROXINE 50 MCG TABLET PO SCH (08:02)
[2017-02-07] MEDS: VENLAFAXINE ER 75 MG CAPSULE PO SCH (08:02)
[2017-02-07] MEDS: MULTIVITAMINS THERAPEUTIC 1 TABLET PO SCH (08:02)
[2017-02-07] MEDS: FUROSEMIDE 40 MG TABLET PO SCH (08:08)
--- NOTE | 2017-02-07 08:49 | DC SUMMARY: IM Note ---
Discharge Summary: IM/Peds Provider: Date of Admission: 02/04/17 Admitting Provider: JELLY ELLIS MD Attending Provider: JELLY ELLIS MD Discharging Provider: DEE DEE NÚÑEZ Primary Care Provider: Discharge Date: 02/07/17 - Diagnosis (1) Pneumonia Status: Acute Qualifiers: Pneumonia type: due to unspecified organism Laterality: bilateral Lung location: lower lobe of lung Qualified Code(s): J18.9 - Pneumonia, unspecified organism (2) Leukocytosis Status: Acute Qualifiers: Leukocytosis type: leukemoid reaction Qualified Code(s): D72.823 - Leukemoid reaction (3) Chronic pain Status: Chronic Qualifiers: Chronic pain type: chronic pain syndrome Qualified Code(s): G89.4 - Chronic pain syndrome (4) Hypoxia Status: Chronic (5) Non-pressure chronic ulcer of other part of left foot with fat layer exposed Status: Chronic (6) Non-pressure chronic ulcer of other part of right foot with fat layer exposed Status: Chronic (7) Lung disease Status: Suspected (8) Obstructive hypertrophic cardiomyopathy Status: Chronic (9) Tobacco abuse Status: Chronic Hospital Course: Patient was admitted on 01/29 for acute pneumonia/elevated BNP. He was started on azithromycin and ceftriaxone for pneumonia (noted on CXR) and did have improvement in WBC. Patient was evaluated to cardiology and had repeat echocardiogram. Was not felt to be in worsening CHF, was started on spironolactone for additional fluid control however. Saturday evening patient did have some confusion and increased hypoxia- was felt related to his narcotics and symptoms improved/resolved throughout day yesterday. He has been ambulatory and even was caught smoking on hospital campus. Today he is feeling better. No longer has oxygen requirement and is ready to go home. 1) Pneumonia- will be transitioned to oral azithromycin and cefdinir to complete antibiotic course (patient has allergy to cephalexin in chart- has tolerated cetriaxone in hospital, patient states he had a reaction to dental antibiotic with sensation of throat closing, however his is not sure exactly what the antibiotic was as it was years ago, patient is wanting to trial cefdinir and will monitor for potential reaction) 2)HOCM/Chronic CHF- was evaluated by cardiology and had echocardiogram with hospitalization, was not felt to be in acute failure despite the elevations in BNP. New medication spironolactone- will want follow up potassium 3) Elevated CRP- out of proportion to exam findings, ?related to underlying chronic health issues 4) Chronic pain- Did not adjust medications at discharge, to continue follow up with pain provider for refills 5) Chronic ulcers- continue wound management - Time Spent with Patient Total time spent providing and/or coordinating discharge services: Time with patient DS: Greater than 30 minutes Specific discharge activities: Discussed the potential allergy interaction or oral cefdinir and previous reaction to ?cephalexin from dentist years ago. Patient has been tolerating ceftrixone in hospital with no issues. He would like to try medication as outpatient and will montior for any allergy signs/ symptoms Discharge - Patient/Caregiver Discharge Instructions Activity Level: As tolerated Diet: Cardiac Additional Instructions: Call your healthcare provider if you have any of the following: * Symptoms get worse * Fever continues * Shortness of breath gets worse * Increased mucus or mucus that is darker in color * Coughing gets worse * Lips or fingers are bluish in color * Side effects from your medicine Follow up: Wound Care, Outpatient [Other] - 02/08/17 10:00 am SARAH,Provider [] - 02/18/17 1:40 pm (APPT ON February @ 1:40 AT THE [facility] ) Overall discharge status: patient is progressing back to baseline Print Language: LIBYAN Home Medications: Spironolactone [Aldactone*] 25 mg PO DAILY #30 tablet Cefdinir 300 mg PO BID #10 capsule Disposition: HOME, SELF-CARE Discharge Summary Data - Medication History Medication History: Home Medications Furosemide [Lasix*] 80 mg PO BID 02/05/17 Ibuprofen [Ibuprofen*] 600 mg PO QID PRN 02/05/17 Levothyroxine [Synthroid*] 50 mcg PO DAILY 02/05/17 Magnesium Oxide [Mag-Ox*] 400 mg PO DAILY 02/05/17 Multivitamins,Therapeutic [Thera Multivitamin*] 1 tab PO DAILY 02/05/17 Omeprazole [Prilosec] 20 mg PO DAILY 02/05/17 Potassium Chloride ER [Micro-K 10 Meq*] 2 tab PO DAILY 02/05/17 Pregabalin [Lyrica*] 75 mg PO BID 02/05/17 Venlafaxine ER [Effexor Xr*] 75 mg PO DAILY 02/05/17 Zinc Gluconate [Zinc*] 50 mg PO DAILY 02/05/17 aspirin EC [Aspirin EC*] 81 mg PO DAILY 02/05/17 metoprolol TARTRATE [Metoprolol Tartrate*] 100 mg PO BID 02/05/17 oxyCODONE HCL CR [Oxycontin Sr*] 40 mg PO BID 02/05/17 oxyCODONE HCL CR [Oxycontin Sr*] 60 mg PO BID 02/05/17 oxyCODONE HCL IR [Oxy Ir*] 30 mg PO Q4H PRN 02/05/17 predniSONE [Prednisone*] 10 mg PO DAILY 02/05/17 Inpatient Medications 02/05/17 09:00 predniSONE [Deltasone] 10 mg PO DAILY 02/05/17 10:00 Potassium Chloride ER [K-Dur] 40 meq PO ONCE 02/05/17 14:00 Azithromycin [Zithromax] 250 mg PO DAILY Levothyroxine [Synthroid] 50 mcg PO DAILY Magnesium Oxide [Mag-Ox] 400 mg PO DAILY Pregabalin [Lyrica] 75 mg PO BID Venlafaxine ER [Effexor Xr] 75 mg PO DAILY Zinc Gluconate 50 mg PO DAILY aspirin EC [Ecotrin 81 mg] 81 mg PO DAILY oxyCODONE HCL CR [OxyCONTIN CR] 40 mg PO BID 02/05/17 14:12 Ibuprofen [Motrin] 600 mg PO QID PRN 02/05/17 14:27 oxyCODONE HCL IR [oxyCODONE HCL] 30 mg PO Q4H PRN 02/05/17 14:30 metoprolol TARTRATE [Lopressor] 100 mg PO BID 02/05/17 20:00 cefTRIAXone SODIUM [Rocephin] 1,000 mg Normal Saline Mini-Bag+ [Sodium Chloride 100 ml Mini-Bag Plus] 100 ml IV Q24H 02/05/17 21:00 Furosemide [Lasix] 80 mg PO BID oxyCODONE HCL CR [OxyCONTIN CR] 60 mg PO BID 02/06/17 06:30 Pantoprazole [Protonix] 40 mg PO BEFORE BREAKFAST 02/06/17 09:00 Multivitamins,Therapeutic [Thera] 1 tab PO DAILY Potassium Chloride ER [Micro-K] 20 meq PO DAILY 02/06/17 18:30 Enoxaparin Sodium [Lovenox] 40 mg SUBCUT DAILY 02/07/17 09:00 Spironolactone [Aldactone] 25 mg PO DAILY Procedures and tests throughout hospitalization: Completed Lab Orders 02/04/17 20:30 crp [C-REACTIVE PROTEIN] [CHEM] Stat 02/05/17 02:30 TROPONIN I [CHEM] Stat 02/05/17 05:45 BNP,NT-PRO [CHEM] Routine 02/05/17 08:22 TROPONIN I [CHEM] Stat 02/06/17 05:45 BNP,NT-PRO [CHEM] AMDRAW CBC AUTO DIF, MDIF/RMOR IF IND [HEM] AMDRAW cmp [COMPREHENSIVE METABOLIC PANEL] [CHEM] AMDRAW 02/07/17 05:30 BMP [BASIC METABOLIC PANEL] [CHEM] AMDRAW BNP,NT-PRO [CHEM] AMDRAW C-REACTIVE PROTEIN [CHEM] Routine CBC W/ MANUAL DIFFERENTIAL [HEM] Routine Pending Orders 02/05/17 08:55 Echocardiogram [CARDIO] Routine 02/05/17 09:00 predniSONE [Deltasone] 10 mg PO DAILY 02/05/17 10:00 Potassium Chloride ER [K-Dur] 40 meq PO ONCE 02/05/17 14:00 Azithromycin [Zithromax] 250 mg PO DAILY Levothyroxine [Synthroid] 50 mcg PO DAILY Magnesium Oxide [Mag-Ox] 400 mg PO DAILY Pregabalin [Lyrica] 75 mg PO BID Venlafaxine ER [Effexor Xr] 75 mg PO DAILY Zinc Gluconate 50 mg PO DAILY aspirin EC [Ecotrin 81 mg] 81 mg PO DAILY oxyCODONE HCL CR [OxyCONTIN CR] 40 mg PO BID 02/05/17 14:12 Ibuprofen [Motrin] 600 mg PO QID PRN 02/05/17 14:27 oxyCODONE HCL IR [oxyCODONE HCL] 30 mg PO Q4H PRN 02/05/17 14:30 metoprolol TARTRATE [Lopressor] 100 mg PO BID 02/05/17 20:00 cefTRIAXone SODIUM [Rocephin] 1,000 mg Normal Saline Mini-Bag+ [Sodium Chloride 100 ml Mini-Bag Plus] 100 ml IV Q24H 02/05/17 21:00 Furosemide [Lasix] 80 mg PO BID oxyCODONE HCL CR [OxyCONTIN CR] 60 mg PO BID 02/06/17 06:30 Pantoprazole [Protonix] 40 mg PO BEFORE BREAKFAST 02/06/17 09:00 Multivitamins,Therapeutic [Thera] 1 tab PO DAILY Potassium Chloride ER [Micro-K] 20 meq PO DAILY 02/06/17 18:27 Smoking Cessation Teaching by RT [RT] Routine 02/06/17 18:29 VTE Prophylaxis Scoring/ Ordering Routine Sequential Compression Device IN BED OR CHAIR 02/06/17 18:30 Enoxaparin Sodium [Lovenox] 40 mg SUBCUT DAILY 02/06/17 18:39 wound [Wound Evaluation] [WOUND] . 02/07/17 09:00 Spironolactone [Aldactone] 25 mg PO DAILY Labs on day of discharge: Labs from last 24 hours 02/07/17 05:30 WBC 12.0 H RBC 4.41 Hgb 11.2 L Hct 36.0 L MCV 82.0 D MCH 25.3 L MCHC 31.0 L RDW Not Reportable Plt Count 256 MPV Not Reportable Total Counted 100 Neutrophils % Cancelled Neutrophils % (Manual) 63 Lymphocytes % Cancelled Lymphocytes % (Manual) 31 Monocytes % (Manual) 3 Eosinophils % Cancelled Eosinophils % (Manual) 3 Basophils % Cancelled Neutrophils # Cancelled Lymphocytes # Cancelled Monocytes Cancelled Monocytes # Cancelled Eosinophils # Cancelled Basophils # Cancelled Platelet Estimate Adequate Microcytosis 10-19% of cells Sodium 141 Potassium 3.9 Chloride 101 Carbon Dioxide 26 BUN 16 Creatinine 1.2 GFR Calculation > 60 Glucose 87 Calcium 9.1 C-Reactive Protein > 90.0 H NT-Pro-B Natriuret Pep 4190 H - Imaging and Cardiology CXR Additional comments: bilateral pulmonary infiltrates IM: Discharge Physical Exam - I&O/Vital Signs I&O: Intake & Output 02/06/17 02/07/17 02/07/17 21:59 05:59 13:59 Intake Total 795 250 Output Total 550 Balance 245 250 Weight 66 kg Intake: Oral 795 250 Output: Urine 550 Other: Urine Appearance Clear Urine Color Straw Voiding Method Toilet # Voids 1 Vital Signs: Last Vital Signs Temp 36.5 C 02/07/17 06:43 Pulse 63 02/07/17 06:43 Resp 16 02/07/17 06:43 BP 132/77 02/07/17 06:43 Pulse Ox 93 02/07/17 06:43 Oxygen Flow Rate 2 Oxygen Delivery Method Nasal Cannula - Constitutional General appearance: Present: cooperative, other (Appears much older than stated age. Chronically-ill appearing. ). Absent: acute distress - Head Head exam: Present: atraumatic, normal inspection - Eye Eye exam: Present: EOMI (glasses), PERRL - ENT ENT exam: Present: mucous membranes moist - Neck Neck exam: Absent: lymphadenopathy - Respiratory Respiratory exam: Present: clear. Absent: accessory muscle use, rales, wheezes - Cardiovascular Cardiovascular exam: Present: RRR. Absent: gallop, rubs - GI/Abdominal GI/Abdominal exam: Present: normal bowel sounds, soft. Absent: distended, mass , organomegaly, rebound, tenderness - Extremities Exam Extremities exam: Present: edema (Trace-1+ BLE. Dressings in place are not removed. ), tenderness (BUE and BLE: chronic.) - Back Exam Back exam: Present: other (Scoliosis.). Absent: CVA tenderness (L), CVA tenderness (R) - Neurological Exam Neurological exam: Present: alert, CN II-XII intact, oriented X3 - Psychiatric Psychiatric exam: Present: normal affect, normal mood - Skin Skin exam: Present: other (multiple excoriations noted) - Allied Health Notes Allied health notes reviewed: case management, nursing
[2017-02-07] MEDS ORDERED: SPIRONOLACTONE 25 MG TABLET PO SCH (09:00)
[2017-02-07 11:36] VITALS: BP 116/61; PULSE 67; TEMP 98.7
== END 2017-02-07 08:49 | disposition home or self-care (01) ==
LOC: ER 19:47 → IN 21:18
PROVIDERS: ADMIT Family Medicine; ATTEND Family Medicine
DX: J44.0 Chronic obstructive pulmonary disease with (acute) lower respiratory infection (principal); J16.8 Pneumonia due to other specified infectious organisms; I50.33 Acute on chronic diastolic (congestive) heart failure; Z72.0 Tobacco use; R41.82 Altered mental status, unspecified; E87.6 Hypokalemia; M06.80 Other specified rheumatoid arthritis, unspecified site; D72.829 Elevated white blood cell count, unspecified; I12.9 Hypertensive chronic kidney disease with stage 1 through stage 4 chronic kidney disease, or unspecified chronic kidney disease; N18.9 Chronic kidney disease, unspecified; I42.1 Obstructive hypertrophic cardiomyopathy; Z95.810 Presence of automatic (implantable) cardiac defibrillator; J96.20 Acute and chronic respiratory failure, unspecified whether with hypoxia or hypercapnia; R60.0 Localized edema; L97.522 Non-pressure chronic ulcer of other part of left foot with fat layer exposed; L97.512 Non-pressure chronic ulcer of other part of right foot with fat layer exposed; I45.2 Bifascicular block; E03.9 Hypothyroidism, unspecified; K21.9 Gastro-esophageal reflux disease without esophagitis; F32.89 Other specified depressive episodes; M54.32 Sciatica, left side; G47.30 Sleep apnea, unspecified; G60.9 Hereditary and idiopathic neuropathy, unspecified; Z79.899 Other long term (current) drug therapy
CPT/HCPCS: 36415; 71020; 80048; 80053; 81001; 83880; 84484; 85007; 85025; 85027; 86140; 87040; 93005; 93010; 93041; 93306; 96365; 96366; 96372; 96375; 96376; 99214; 99217; 99220; 99226; 99284; 99285; E0555; G0378; J0696; J1170; J1650; J7512; Q0144

== ENCOUNTER 2017-04-07 15:39 | Emergency (ER) | payer MEDICARE ==
[2017-04-07 16:04] LABS: BLOOD UREA NITROGEN 7 mg/dL (9-20); C-REACTIVE PROTEIN 57.3 mg/L (<10.0); CALCIUM 9.3 mg/dL (8.4-10.2); CHLORIDE 107 mmol/L (98-107); EST GLOMERULAR FILTRATION RATE > 60 mL/min; GLUCOSE 128 mg/dL (70-100); POTASSIUM 3.7 mmol/L (3.5-5.1); SODIUM 140 mmol/L (137-145)
[2017-04-07 16:08] LABS: INR 1.1
--- NOTE | 2017-04-07 16:10 | RADIOLOGY REPORT ---
HISTORY: Pneumonia. COMPARISON: 02/04/2017. TECHNIQUE: Portable AP chest. FINDINGS: There is decreased inflation of the lungs. Bilateral mid to lower lung infiltrates have resolved. Pro bably no other change except for patient positioning and technical differences. Left-sided ICD with l liya in right atrium and right ventricle. No focal areas of consolidation. No pleural effusions or pn eumothoraces. Cardiac silhouette and mediastinal soft tissues within normal limits for AP projection . Bilateral shoulder prostheses. Very mild S-shaped scoliosis thoracic spine and thoracolumbar juncti on. Osteopenia. IMPRESSION: No acute cardiopulmonary process. Interval resolution of bilateral mid to lower lung infiltrates. Final Electronic Signature: This report was electronically signed by Andres Zabala MD on 04/07/2017 4 :08 PM. octavia /
[2017-04-07 16:14] LABS: EOSINOPHILS 1.2 % (0.0-6.0); HEMATOCRIT 37.5 % (42.0-54.0); HEMOGLOBIN 12.1 g/dL (14.0-18.0); LYMPHOCYTES 9.8 % (20.0-40.0); MEAN CORPUS. HGB CONCENTRATION 32.2 g/dL (32.0-36.0); MEAN CORPUSCULAR HEMOGLOBIN 24.4 pg (29.0-35.0); MEAN PLATELET VOLUME 8.3 fL (7.4-10.4); MONOCYTES 5.3 % (2.0-10.0); NEUTROPHILS 83.3 % (54.0-75.0); PLATELET COUNT 306 X 10^3uL (130-440); RED CELL DISTRIBUTION WIDTH 17.5 % (11.5-14.5)
[2017-04-07 16:15] LABS: BASOPHIL# 0.1 X 10^3uL (0.0-0.1); BASOPHILS 0.4 % (0.0-2.0); EOSINOPHILS# 0.2 X 10^3uL (0.0-0.4); LYMPHOCYTES# 1.4 X 10^3uL (0.8-3.8); MONOCYTES# 0.7 X 10^3uL (0.2-1.0); NEUTROPHILS# 11.6 X 10^3uL (2.6-6.7); RED BLOOD COUNT 4.96 X 10^6uL (4.20-6.10)
[2017-04-07] MEDS ORDERED: KETOROLAC TROMETHAMINE 30 MG/ML VIAL ONE (16:21)
[2017-04-07] MEDS ORDERED: oxyCODONE/APAP 5/325 MG PREPAC 1 TAB TABLET PO ONE (17:35)
[2017-04-07] MEDS ORDERED: predniSONE 10 MG TABLET PO ONE (17:39)
--- NOTE | 2017-04-07 17:39 | ER PHYSICIAN DOCUMENTATION ---
Physician Documentation [facility] Name:Mainor Murray Age:56 yrs Sex:Male :1960 Arrival Date:04/07/2017 Time:15:39 Bed4 Private MD:Jessenia Alexander ED, [place] Disposition: 04/07/17 17:05 Discharged to Home/Self Care. Impression: Rheumatoid Arthritis, COPD, Narcotic Withdrawal. - Condition is Fair. - Discharge Instructions: COPD FLARE, NARCOTIC WITHDRAWAL, ARTHRITIS Rheumatoid - RHEUMATOID ARTHRITIS. - Prescriptions for oxycodone- acetaminophen 5-325 mg Oral tablet - take 2 tablet by ORAL route every 4 hours; 20 tablet. - Medical Reconciliation form form. - Follow up: Jessenia Alexander; When: 2 - 3 days; Reason: Recheck today's complaints. - Problem is an ongoing problem. - Symptoms have improved. HPI: 04/07 17:00 This 56 yrs old Male presents to ER via EMS with complaints of arthritis. sc 17:00 out of oxycodone, feels palindromic arthritis flare up. Onset: The symptom(s)/episode sc began/occurred 2 week(s) ago. Severity of symptoms: At their worst the symptoms were incapacitating 14 day(s) ago. The patient has experienced similar episodes in the past, chronically. The patient has been recently seen by a physician: the patient's primary care provider, missed appt to refill meds Saturday. 17:02 Denies true syncope, just episodes of severe arthritic pain with no narcotics yesterday sc and today,. Historical: - Allergies: Amoxicillin; Nubain; Keflex; Sulfa (Sulfonamide Antibiotics); Fentanyl; - Home Meds: 1. Synthroid 50 mcg oral tab 1 tab once daily 2. prednisone 1 mg oral tab once daily 3. Lasix 80 mg oral tab 1 tab 2 times per day 4. Klor-Con 10 10 mEq oral TbER 2 tabs once daily 5. OXYGEN 1 LITER AT NIGHT 6. metoprolol tartrate 100 mg oral tab 1 tab 2 times per day 7. Prilosec 20 mg oral cpDR 1 cap once daily 8. pregabalin 75 mg oral cap 1 cap 2 times per day 9. venlafaxine 75 mg oral cp24 1 cap once daily with food 10. spironolactone Oral 11. Fluconazole Oral 12. MAGNESIUM 13. OxyContin Oral 14. aspirin 81 mg oral tab 1 tab once daily - PMHx: PNEUMONIA; CHF; COPD; HYPERTENSION; PACEMAKER; RHEUMATOID ARTHRITIS; CHF; GERD; hypertrophic cardiomyopathy; HEART MURMUR; ANEMIA; HYPOXIA; OPIOD DEPENDENT; SLEEP APNEA; COPD (September 22, 2016); Sepsis (September 22, 2016); CHF (Congestive Heart Failure)(February 04, 2017); Pneumonia, Unspecified (February 04, 2017); - PSHx: HIP SURGERY; SHOULDER SURGERY; pacer and defibrillator; Bilat hip replacement; Shoulder replacement; - Tetanus: < 10 years. - Ebola Screening: : Patient denies travel to an Ebola-affected area in the 21 days before illness onset. No symptoms or risks identified at this time. . - Immunization history: Flu Vaccine < 1 year. - Social history: Smoking status: Patient uses tobacco products, current every day smoker. ROS: 17:01 Eyes: Negative for injury, pain, redness, and discharge. il ENT: Negative for injury, pain, and discharge. Neck: Negative for injury, pain, and swelling. Back: Negative for injury and pain. Skin: Negative for injury, rash, and discoloration. 17:01 Neuro: Negative for headache, weakness, numbness, tingling, and seizure. sc 17:01 Constitutional: Positive for body aches. 17:01 Cardiovascular: Negative for chest pain, edema, orthopnea, palpitations. 17:01 Respiratory: Negative for cough, shortness of breath, sputum production. 17:01 Abdomen/GI: Negative for abdominal pain, nausea, vomiting, diarrhea. Exam: Head/Face: Normocephalic, atraumatic. Eyes: Pupils equal round and reactive to light, extra-ocular motions intact. Lids and lashes normal. Conjunctiva and sclera are non-icteric and not injected. Cornea within normal limits. Periorbital areas with no swelling, redness, or edema. ENT: Nares patent. No nasal discharge, no septal abnormalities noted. Tympanic membranes are normal and external auditory canals are clear. Oropharynx with no redness, swelling, or masses, exudates, or evidence of obstruction, uvula midline. Mucous membranes moist. Neck: Trachea midline, no thyromegaly or masses palpated, and no cervical lymphadenopathy. Supple, full range of motion without nuchal rigidity, or vertebral point tenderness. No meningismus. Chest/axilla: Normal chest wall appearance and motion. Nontender with no deformity. No lesions are appreciated. Cardiovascular: Regular rate and rhythm with a normal S1 and S2. No gallops, murmurs, or rubs. Normal PMI, no JVD. No pulse deficits. Respiratory: Lungs have equal breath sounds bilaterally, clear to auscultation and percussion. No rales, rhonchi or wheezes noted. No increased work of breathing, no retractions or nasal flaring. Abdomen/GI: Soft, non-tender, with normal bowel sounds. No distension or tympany. No guarding or rebound. No evidence of tenderness throughout. Back: No spinal tenderness. No costovertebral tenderness. Full range of motion. Skin: Warm, dry with normal turgor. Normal color with no rashes, no lesions, and no evidence of cellulitis. MS/ Extremity: Pulses equal, no cyanosis. Neurovascular intact. Full, normal range of motion, negative Homans's, calves equal bilaterally. 17:01 Neuro: Awake and alert, GCS 15, oriented to person, place, time, and situation. sc Cranial nerves II-XII grossly intact. Motor strength 5/5 in all extremities. Sensory grossly intact. Cerebellar exam normal. Normal gait. 17:01 Constitutional: The patient appears in no acute distress, alert, awake, frail, lethargic. 17:01 Cardiovascular: Rate: normal, Rhythm: regular. 17:01 Respiratory: Respirations: normal, Breath sounds: decreased breath sounds, are scattered. 17:01 Abdomen/GI: Bowel sounds: normal, Palpation: abdomen is soft and non-tender. Vital Signs: 15:43 BP 146 / 76; Pulse 60; Resp 20; Temp 98.2(O); Pulse Ox 93% on R/A; Weight 56.7 kg (R); arc Height 5 ft. 8 in. (172.72 cm) (R); Pain 10/10; 16:18 Pulse 60; Resp 16; Pulse Ox 93% on 1 lpm NC; lc 17:00 BP 149 / 80 (auto/); lc 17:00 Pulse 60 MON; Resp 16; Pulse Ox 96% on 2 lpm NC; Pain 5/10; lc 17:35 Pulse 72; Resp 18; Pulse Ox 91% on R/A; Pain 5/10; lc 15:43 Body Mass Index 19.01 (56.70 kg, 172.72 cm) arc 16:18 O2 ON AFTER SAT DROPPED TO 87% AFTER DILAUDID DOSE. MDM: 15:40 Patient medically screened. il 17:03 Differential Diagnosis altered mental status, syncope vs narcotic withdrawal vs sc arthritis. will increase prednisone for now, short term refill of oxycodone. Data reviewed: vital signs, nurses notes, old medical records, lab test result(s), EKG, radiologic studies, and as a result, I will discharge patient. ECG:. 04/07 16:09 Order name: BASIC METABOLIC PANEL; Complete Time: 16:29 [facility] 04/07 16:28 Interpretation: Normal. il 04/07 16:09 Order name: C-REACTIVE PROTEIN; Complete Time: 16:29 [facility] 04/07 16:28 Interpretation: Abnormal: C-REACTIVE PROTEIN 57.3. il 04/07 16:12 Order name: PROTIME/INR; Complete Time: 16:29 [facility] 04/07 16:28 Interpretation: Abnormal: PROTIME 16.8. il 04/07 16:16 Order name: CBC AUTO DIF, MDIF/RMOR IF IND; Complete Time: 16:29 [facility] 04/07 16:28 Interpretation: Abnormal: WHITE BLOOD COUNT 14.0; HEMOGLOBIN 12.1; HEMATOCRIT 37.5; il left shift, mild anemia, elevated wbc with left shift. 04/07 16:17 Order name: BNP,NT-PRO; Complete Time: 16:29 [facility] 04/07 16:28 Interpretation: Abnormal: BNP,NT-PRO 1930. il 04/07 16:17 Order name: TROPONIN I; Complete Time: 16:29 [facility] 04/07 16:28 Interpretation: Normal. il 04/07 16:12 Order name: CHEST; [place]ING[place] [id number]; Complete Time: 16:29 [facility] 04/07 16:28 Interpretation: Normal. il 04/07 15:41 Order name: Iv Saline Lock; Complete Time: 15:44 il 04/07 15:43 Order name: 12-lead EKG; Complete Time: 16:17 il 04/07 16:18 Order name: Oxygen; Complete Time: 16:18 EC:03 Rate is 64 beats/min. Rhythm is regular with Right bundle branch block. RI interval is sc prolonged. QRS interval is prolonged. QT interval is prolonged. Q waves are Old. T waves are Flattened. No ST changes noted. Clinical impression: Abnormal EKG without significant change. Interpreted by me. Reviewed by me. Dispensed Medications: 16:05 Drug: Toradol 30 mg; Route: IVP; Infused Over: 2 mins; Site: right forearm; 17:29 Follow up: Response: Pain is unchanged, physician notified 16:07 Drug: Dilaudid 2 mg; {Note: 1MG AT A TIME.} Route: IVP; Infused Over: 2 mins; Site: right forearm; 17:29 Follow up: Response: Pain is decreased 17:25 Drug: predniSONE 20 mg; Route: PO; 17:30 Follow up: Response: No adverse reaction 17:28 Dru tablet of (oxyCODONE 5 mg, Acetaminophen 325 mg); Route: PO; 17:29 Follow up: Response: Pharmacy closed - take home med pack Signatures: Virgie Eugene RN RN Lamont Alexander MD MD il
--- NOTE | 2017-04-07 17:39 | ER NURSING DOCUMENTATION ---
Nurse's Notes [facility] Name:Mainor Murray Age:56 yrs Sex:Male :1960 Arrival Date:04/07/2017 Time:15:39 Bed4 Private MD:Jessenia Alexander Diagnosis:Rheumatoid Arthritis;COPD;Narcotic Withdrawal Presentation: 04/07 15:42 Acuity: HALLE 2 rh 15:46 Presenting complaint: Patient states: NOT FELT WELL FOR 2 DAYS. HAS NOT EATEN SINCE YESTERDAY. HAD 2 SYNCOPAL EPISODES TODAY. ARTHRITIS CHRONIC PAIN FLARED UP TODAY ALSO TO R SHOULDER AND BOTH KNEES. BOTH LOWER LEGS WRAPPED IN BANDAGES, SAW WOUND NURSE 2 DAYS AGO FOR CHRONIC WOUND CARE. Transition of care: Home. Notified ED Physician of patient's arrival and CC. 15:46 Method Of Arrival: EMS: 410 lc Triage Assessment: 15:58 General: Appears distressed, ill, Behavior is cooperative. Pain: Complains of pain in lc RIGHT SHOULDER AND BOTH KNEES Pain At worst was 9 out of 10 on a pain scale. Quality of pain is described as dull, throbbing, Pain began 1 hour ago Aggravated by increased activity, repositioning. Neuro: Level of Consciousness is awake, alert, Oriented to person, place, time, event. Cardiovascular: Rhythm is with capture. Respiratory: Airway is patent Respiratory effort is even, unlabored, Breath sounds are clear bilaterally. GI: Abdomen is flat, Abd is soft and non tender X 4 quads. : Derm: Skin is pale. Historical: - Allergies: Amoxicillin; Nubain; Keflex; Sulfa (Sulfonamide Antibiotics); Fentanyl; - Home Meds: 1. Synthroid 50 mcg oral tab 1 tab once daily 2. prednisone 1 mg oral tab once daily 3. Lasix 80 mg oral tab 1 tab 2 times per day 4. Klor-Con 10 10 mEq oral TbER 2 tabs once daily 5. OXYGEN 1 LITER AT NIGHT 6. metoprolol tartrate 100 mg oral tab 1 tab 2 times per day 7. Prilosec 20 mg oral cpDR 1 cap once daily 8. pregabalin 75 mg oral cap 1 cap 2 times per day 9. venlafaxine 75 mg oral cp24 1 cap once daily with food 10. spironolactone Oral 11. Fluconazole Oral 12. MAGNESIUM 13. OxyContin Oral 14. aspirin 81 mg oral tab 1 tab once daily - PMHx: PNEUMONIA; CHF; COPD; HYPERTENSION; PACEMAKER; RHEUMATOID ARTHRITIS; CHF; GERD; hypertrophic cardiomyopathy; HEART MURMUR; ANEMIA; HYPOXIA; OPIOD DEPENDENT; SLEEP APNEA; COPD (September 22, 2016); Sepsis (September 22, 2016); CHF (Congestive Heart Failure)(February 04, 2017); Pneumonia, Unspecified (February 04, 2017); - PSHx: HIP SURGERY; SHOULDER SURGERY; pacer and defibrillator; Bilat hip replacement; Shoulder replacement; - Tetanus: < 10 years. - Ebola Screening: : Patient denies travel to an Ebola-affected area in the 21 days before illness onset. No symptoms or risks identified at this time. . - Immunization history: Flu Vaccine < 1 year. - Social history: Smoking status: Patient uses tobacco products, current every day smoker. Screenin:01 Infectious Disease Risk None. Abuse screen: Denies threats or abuse. Denies injuries lc from another. Nutritional screening: No deficits noted. Assessment: 16:01 See Triage Assessment done by same RN. Vital Signs: 15:43 BP 146 / 76; Pulse 60; Resp 20; Temp 98.2(O); Pulse Ox 93% on R/A; Weight 56.7 kg (R); arc Height 5 ft. 8 in. (172.72 cm) (R); Pain 10/10; 16:18 Pulse 60; Resp 16; Pulse Ox 93% on 1 lpm NC; lc 17:00 BP 149 / 80 (auto/); lc 17:00 Pulse 60 MON; Resp 16; Pulse Ox 96% on 2 lpm NC; Pain 5/10; lc 17:35 Pulse 72; Resp 18; Pulse Ox 91% on R/A; Pain 5/10; lc 15:43 Body Mass Index 19.01 (56.70 kg, 172.72 cm) arc 16:18 O2 ON AFTER SAT DROPPED TO 87% AFTER DILAUDID DOSE. ED Course: 15:40 Patient arrived in ED. jt 15:40 Lamont Alexander MD is Attending Physician. sc 15:40 Jessenia Alexander is Private Physician. jt 15:43 Triage completed. rh 15:45 Virgie Eugene, MAHENDRA is Primary Nurse. 15:51 EKG done. (by ED staff). Reviewed by Lamont Alexander MD. arc 15:54 Port Xray Completed. [place] 16:01 Valuables Remains with patient Patient has correct armband on for positive lc identification. Placed in gown. Bed in low position. Call light in reach. Side rails up X2. Adult w/ patient. Cardiac Monitoring On for Nurse Monitoring only. Pulse Ox - RN Monitoring Only. Turned WITH PILLOWS. 16:02 Labs drawn. By EMS Sent per order to lab. Maintain field IV. Dressing intact. Good lc blood return noted. Site clean & dry. Gauge & site: 20G TO R FA. 16:17 Oxygen Oxygen administration via nasal cannula @ 1L/min. 17:05 Jessenia Alexander is Referral Physician. wv 17:49 EKG attached Administered Medications: 16:05 Drug: Toradol 30 mg; Route: IVP; Infused Over: 2 mins; Site: right forearm; 17:29 Follow up: Response: Pain is unchanged, physician notified 16:07 Drug: Dilaudid 2 mg; {Note: 1MG AT A TIME.} Route: IVP; Infused Over: 2 mins; Site: right forearm; 17:29 Follow up: Response: Pain is decreased 17:25 Drug: predniSONE 20 mg; Route: PO; 17:30 Follow up: Response: No adverse reaction 17:28 Dru tablet of (oxyCODONE 5 mg, Acetaminophen 325 mg); Route: PO; 17:29 Follow up: Response: Pharmacy closed - take home med pack Outcome: 17:05 Discharge ordered by . wv 17:32 Discharged to home via ambulance, with family. 17:32 Condition: stable 17:32 Discharge Assessment: Patient awake and alert. Oriented to person, place and time. Patient USUAL BASELINE, FAMILY HELPS TAKE CARE OF. 17:32 Discharge instructions given to patient, family, Instructed on discharge instructions, follow up and referral plans. medication usage, EATING AND DRINKING FLUIDS MORE Demonstrated understanding of instructions, medications. 17:32 IV D/Vance 17:38 Patient left the ED. Signatures: Virgie Eugene, RN Lamont Gonzalez MD MD sc Abbott, Kerry Perdue, Carlos Gonzalez [facility] [place], Stephanie Alessandra Marshall
== END 2017-04-07 17:39 | disposition home or self-care (01) ==
LOC: ER 15:39
DX: M06.9 Rheumatoid arthritis, unspecified (principal); J44.9 Chronic obstructive pulmonary disease, unspecified; I45.10 Unspecified right bundle-branch block; F11.93 Opioid use, unspecified with withdrawal; I10 Essential (primary) hypertension; I50.9 Heart failure, unspecified; Z95.0 Presence of cardiac pacemaker; Z79.899 Other long term (current) drug therapy; Z79.82 Long term (current) use of aspirin; Z79.891 Long term (current) use of opiate analgesic; Z79.52 Long term (current) use of systemic steroids; Z74.3 Need for continuous supervision; F17.210 Nicotine dependence, cigarettes, uncomplicated
CPT/HCPCS: 71010; 80048; 83880; 84484; 85025; 85610; 86140; 93005; 93010; 96374; 96375; 99284; 99285; A0425; A0429; J1170; J1885; J7512